=== PATIENT | male | born 1995 | race Caucasian/White ===

== ENCOUNTER 2018-01-18 20:25 | Observation (INO) | payer MEDICAID, OTHER ==
[~2018-01-18] VITALS: Ht 190.5 cm; Wt 90.7 kg
[2018-01-18] MEDS ORDERED: SODIUM CHLORIDE 0.9% 2,000 ML IV ONE (21:30)
[2018-01-18 21:46] LABS: Basophils # (auto) 0.1 uL; Basophils % (auto) 0.7 % (0.0-2.0); Eosinophils # (auto) 0.2 uL; Eosinophils % (auto) 1.6 % (0.0-7.0); Hematocrit 45.9 % (41.0-53.0); Lymphocytes # (auto) 1.9 uL; Lymphocytes % (auto) 14.9 % (10.0-50.0); Mean Corpuscular Hemoglobin 30.3 pg (28.0-32.0); Mean Corpuscular Hgb Conc. 34.8 g/dL (32.0-36.0); Monocytes % (auto) 8.2 % (0.0-12.0); Neutrophils # (auto) 9.4 uL; Neutrophils % (auto) 74.6 % (37.0-80.0); Nucleated Red Blood Cells % 0.1 %; Platelet Count (auto) 232 10^3/uL (140-450); Red Blood Cells 5.27 10^6/uL (4.5-5.90); Red Cell Distribution Width 13.8 % (11.8-14.3); White Blood Cell 12.7 10^3/uL (4.4-10.8)
[2018-01-18 22:06] LABS: INR 1.05 (0.9-1.15)
[2018-01-18 22:20] LABS: Albumin 3.9 g/dL (3.4-5.0); Anion Gap 12 (5-15); Blood Urea Nitrogen 24 mg/dL (7-18); Calcium 8.8 mg/dL (8.5-10.1); Carbon Dioxide 21 mmol/L (21-32); Chloride 106 mmol/L (98-107); Glucose 127 mg/dL (74-106); Potassium 3.1 mmol/L (3.5-5.1); Sodium 139 mmol/L (136-145)
[2018-01-18 22:20] LABS: Alcohol, Urine < 3.0 mg/dL (0-5); Amphetamine Screen, Urine NEGATIVE (NEGATIVE); Barbiturate Scree,Urine NEGATIVE (NEGATIVE); Benzodiazephine Screen, Urine NEGATIVE (NEGATIVE); Cannabinoid Screen, Urine POSITIVE (NEGATIVE); Cocaine Screen, Urine NEGATIVE (NEGATIVE); Opiate Scree,Urine NEGATIVE (NEGATIVE); Phencyclidine Screen, Urine NEGATIVE (NEGATIVE)
[2018-01-18 22:22] LABS: Alanine Aminotransferase 30 U/L (16-61); Aspartate Aminotransferase 21 U/L (15-37); BUN/Creatinine Ratio 18.6; GFR African American 90 mL/min; GFR Non-African American 74 mL/min
[2018-01-18 22:28] LABS: Alkaline Phosphatase 95 U/L (45-117); Bilirubin, Total 0.8 mg/dL (0.2-1.0); Total Protein 7.4 g/dL (6.4-8.2)
[2018-01-18 23:08] VITALS: BP 140/72
[2018-01-19] MEDS ORDERED: POTASSIUM CHL 20 Meq TABLET PO ONE (00:45)
== END 2018-01-19 02:19 | disposition home or self-care (01) | DRG 310 ==
LOC: ER 20:44 → OVERFLOW 20:45 → ER 01-19 02:19
PROVIDERS: ADMIT Emergency Medicine; ATTEND Emergency Medicine
DX: R00.0 Tachycardia, unspecified (principal); E87.6 Hypokalemia; E86.0 Dehydration; F12.10 Cannabis abuse, uncomplicated
CPT/HCPCS: 36415; 71045; 80053; 80307; 83735; 83880; 84443; 84484; 85025; 85379; 85610; 85730; 96360; 99285; G0378; J7030; 93005